=== PATIENT | male | born 1950 | race Caucasian/White ===

== ENCOUNTER 2019-10-21 05:43 | Day surgery (SDC) | payer MEDICARE ==
[~2019-10-21] VITALS: Ht 175.3 cm; Wt 89.5 kg
[~2019-10-21 05:43] MED LIST: SODIUM CHLORIDE 0.9% 1,000 ML IV ONE; SODIUM CHLORIDE 0.9% 1,000 ML ONE
[2019-10-21] MEDS ORDERED: OXYB5XL PO (06:11)
[2019-10-21] MEDS ORDERED: SACU1TAB7 PO (06:11)
[2019-10-21] MEDS ORDERED: CARV3 PO (06:11)
[2019-10-21] MEDS ORDERED: FOLI-130 PO (06:11)
[2019-10-21] MEDS ORDERED: CHOL125C2 PO (06:11)
[2019-10-21 07:04] LABS: BASOPHILS % (AUTO) 0.8 % (0.0-2.0); HEMATOCRIT 50.5 % (41-53); HEMOGLOBIN 17.2 g/dL (13.5-17.5); LYMPHOCYTES # (AUTO) 1.5 K/uL (1.0-4.8); MEAN CORPUSCULAR HEMOGLOBIN 31.6 pg (26.0-34.0); MEAN CORPUSCULAR VOLUME 93 fL (80-100); MONOCYTES # (AUTO) 0.5 K/uL (0.1-1.0); NEUTROPHILS # (AUTO) 4.2 K/uL (1.8-7.7); NEUTROPHILS % (AUTO) 63.2 % (40.0-70.0); PLATELET COUNT (AUTO) 159 K/uL (150-450); RED BLOOD CELL COUNT(AUTO) 5.44 MIL/uL (4.50-5.90); RED CELL DISTRIBUTION WIDTH 15.5 % (11.5-14.5)
[2019-10-21 07:08] LABS: ANION GAP 9 mmol/L (8-16); CALCIUM, TOTAL 9.3 mg/dL (8.8-10.5); CARBON DIOXIDE 25 mmol/L (22-29); CHLORIDE 105 mmol/L (98-107); CREATININE 1.06 mg/dL (0.60-1.30); GLUCOSE,RANDOM 102 mg/dL (70-110); POTASSIUM 3.9 mmol/L (3.5-5.1); SODIUM SERUM 139 mmol/L (136-145); UREA NITROGEN, BLOOD 13 mg/dL (7-18)
[2019-10-21 07:13] LABS: ALANINE AMINOTRANSFERASE 24 U/L (12-78); ALBUMIN 3.2 g/dL (3.4-5.0); ALKALINE PHOSPHATASE 95 U/L (46-116); ASPARTATE AMINOTRANSFERASE 23 U/L (15-37); BILIRUBIN,TOTAL 0.9 mg/dL (0.1-1.0); TOTAL PROTEIN, SERUM 7.8 g/dL (6.4-8.2)
[2019-10-21 07:14] LABS: GLOMERULAR FILTR. RATE CALC > 60 mL/min (>60); INR 1.1 (0.9-1.1); PROTHROMBIN TIME 11.4 SEC (9.4-11.6)
[2019-10-21] MEDS ORDERED: IOHEXOL 300 MG/ML 150 ML VIAL ONE (07:15)
[2019-10-21] MEDS ORDERED: LIDOCAINE/PF 1% 30 ML VIAL ONE (07:15)
[2019-10-21] MEDS ORDERED: SODIUM BICARBONATE 50 MEQ/50 ML VIAL ONE (07:15)
[2019-10-21] MEDS ORDERED: HEPARIN SODIUM 1000 UNITS/NS 1,000 ML ONE (07:16)
[2019-10-21] MEDS ORDERED: 0.9% SODIUM CHLORIDE 10 ML SYRINGE IVP ONE (07:19)
[2019-10-21] MEDS ORDERED: MIDAZOLAM HCL 2 MG/2 ML VIAL ONE ×2 (07:24→08:43)
[2019-10-21] MEDS ORDERED: FentaNYL CITRATE-PF 100 MCG/2 ML VIAL ONE (07:24)
[2019-10-21 07:54] VITALS: BP 170/97
[2019-10-21] MEDS ORDERED: HEPARIN SODIUM 1000 UNITS/NS 1,000 ML IARTER ONE (08:41)
[2019-10-21] MEDS ORDERED: SODIUM CHLORIDE 0.9% 500 ML IV ONE (08:41)
[2019-10-21] MEDS ORDERED: MIDAZOLAM HCL 2 MG/2 ML VIAL IVP ONE ×2 (08:45→09:30)
[2019-10-21] MEDS ORDERED: LIDOCAINE 1% 30 ML/SOD BICARB 8.4% 4 ML SQ ONE (08:45)
[2019-10-21] MEDS ORDERED: FentaNYL CITRATE-PF 100 MCG/2 ML VIAL IVP ONE ×2 (08:45→09:30)
[2019-10-21] MEDS ORDERED: IOHEXOL 300 MG/ML 150 ML VIAL IARTER ONE (08:45)
[2019-10-21] MEDS ORDERED: VERAPAMIL HCL 2.5 MG/ML 2 ML VIAL ONE (08:51)
[2019-10-21] MEDS ORDERED: NITROGLYCERIN 50 MG/D5% WATER 0 ML ONE (08:52)
[2019-10-21] MEDS ORDERED: CONTAINER EMPTY IVP ONE ×2 (09:15)
[2019-10-21] MEDS ORDERED: SODIUM CHLORIDE 0.9% IVP ONE (09:15)
[2019-10-21] MEDS ORDERED: ADENOSINE IVP ONE ×3 (09:15)
[2019-10-21 09:54] VITALS: BP 158/96
[2019-10-21] MEDS ORDERED: SODIUM CHLORIDE 0.9% 500 ML IV SCH (10:00)
== END 2019-10-21 14:05 | disposition home or self-care (01) ==
LOC: CATHLAB 05:43
PROVIDERS: ATTEND Internal Medicine Cardiovascular Disease
DX: I25.10 Atherosclerotic heart disease of native coronary artery without angina pectoris (principal); I25.82 Chronic total occlusion of coronary artery; I42.9 Cardiomyopathy, unspecified; J44.9 Chronic obstructive pulmonary disease, unspecified; I10 Essential (primary) hypertension; I27.20 Pulmonary hypertension, unspecified; Z79.899 Other long term (current) drug therapy; Z11.59 Encounter for screening for other viral diseases; Z86.73 Personal history of transient ischemic attack (TIA), and cerebral infarction without residual deficits
CPT/HCPCS: 36415; 80053; 85025; 85610; 85730; 87635; 93005; 93458; 99152; 99153; C1892; J0153; J1644; J2250; J3010; J3490 ×2; J7030; Q9967; J7050